=== PATIENT | male | born 1955 | race Asian ===

== ENCOUNTER 2018-02-02 20:53 | Inpatient (IN) | payer OTHER ==
[~2018-02-02] VITALS: Ht 175.3 cm; Wt 63.5 kg
[2018-02-02 20:58] VITALS: Ht 175.3 cm; Wt 63.5 kg
[2018-02-02] MEDS ORDERED: MIDODRINE HCL2.5 M1 PO (21:58)
[2018-02-02] MEDS ORDERED: SINEMET 25-1001 TAB PO (22:00)
[2018-02-02 22:16] LABS: microscopic required? NO
[2018-02-02 22:41] LABS: BASOPHIL % 0.1 % (0-2); PLATELET COUNT 271 x10^3mcL (130-400); RED CELL DISTRIBUTION WIDTH 13.1 % (11.5-14.5)
[2018-02-02 22:44] LABS: CALCIUM 8.6 mg/dL (8.5-10.1); CARBON DIOXIDE 30.8 mmol/L (21-32); CHLORIDE SERUM 103 mmol/L (98-107); CREATININE SERUM 1.2 mg/dL (0.7-1.3); GFR1 > 60 mL/min; GLUCOSE SERUM 116 mg/dL (74-106); POTASSIUM SERUM 3.8 mmol/L (3.5-5.1); SODIUM SERUM 140 mmol/L (136-145)
[2018-02-02 22:49] LABS: ALBUMIN 3.9 g/dL (3.4-5.0); ALKALINE PHOSPHATASE 56 U/L (46-116); ALT/SGPT 13 U/L (16-63); AST/SGOT 11 U/L (15-37); BILIRUBIN TOTAL 0.9 mg/dL (0.20-1.00); LIPASE 177 IU/L (73-393); TOTAL PROTEIN, SERUM 6.5 g/dL (6.4-8.2); urine erythrocyte NEGATIVE (NEGATIVE)
[2018-02-03 01:05] LABS: T3 TOTAL 0.66 ng/mL
[2018-02-03 01:14] LABS: MAGNESIUM 2.5 mg/dL (1.8-2.4)
[2018-02-03 01:25] LABS: FREE T4 0.93 ng/dL (0.76-1.46); FREE THYROXINE INDEX 2.3 ug/dL (1.4-4.5); T4(THYROXINE) 6.9 ug/dL (4.7-13.3)
[2018-02-03 02:07] VITALS: BP 162/105
[2018-02-03 06:37] VITALS: BP 168/98
[2018-02-03 08:17] VITALS: BP 176/98
[2018-02-03] MEDS ORDERED: CARBIDOPA AND L1 TER PO (09:31)
[2018-02-03 12:11] VITALS: BP 134/82
== END 2018-02-03 15:31 | disposition home or self-care (01) | DRG 56 ==
LOC: ED 20:53 → DU 02-03 00:10
PROVIDERS: Emergency Medicine; Internal Medicine
DX: G20 Parkinson's disease (principal); N17.0 Acute kidney failure with tubular necrosis; G90.3 Multi-system degeneration of the autonomic nervous system; G90.9 Disorder of the autonomic nervous system, unspecified; R73.03 Prediabetes; D64.9 Anemia, unspecified; Z68.20 Body mass index [BMI] 20.0-20.9, adult
CPT/HCPCS: 83880; 84439; 97116-GP; 97530-GP; J7030; J7040; Q0092